=== PATIENT | male | born 1980 | race Caucasian/White ===

== ENCOUNTER → 2018-02-04 | Outpatient (CLI) | payer OTHER ==
[~2018-02-04] VITALS: Ht 172.7 cm; Wt 67.0 kg
[~2018-02-04] MED LIST: LIPITOR 20 MG T20 M1 PO; NEURONTIN 300300 M1 PO; NORCO 5-325 TA1 EACH PO; OMEPRAZOLE20 M2 PO
[2018-02-04 09:07] VITALS: BP 107/74
--- NOTE | 2018-02-04 09:17 | NUR ---
Pain Clinic Assessment: 1. History of Osteoarthritis: Not Applicable History of Rheumatoid Arthritis: Not Applicable 2. Height: 5 ft. 8 in. 172.7 cm. Weight: 147.6 lb. oz. 66.951 kg. Patient's BMI: 22.4 3. Vital Signs: BP: 107/74 Pulse: 60 Resp: 14 Temp: 02 Sat: 97 ECG Mon: 4. Pain Intensity: 4 5. Fall Risk: Dizziness: N Needs help standing or walking: N Fallen in the last 3 months: N Fall risk comments: 6. Patient on Blood Thinner: None 7. History of Hypertension: N 8. Opioid Therapy greater than 6 weeks: N Opiate Contract Signed: 9. Risk Assessment Tool Provided: 10. Functional Assessment Tool: 11. Recreational Drug Use: Never Drug Type: Tobacco Use: Never Smoker Tobacco Type: Amount or Packs/day: How Many Years: Alcohol Use: Yes Frequency: Weekly Quant: 2-3
--- NOTE | 2018-02-10 11:18 | HPC ---
[facility] [place] [address] PAIN MANAGEMENT CONSULTATION Name: ENRIQUE PAULINO I Room #: REG MILDRED Stewart.#: [id number] Admission: 02/04/18 ������������������ Attend Phys: Max Humphries MD Discharge: ������������������ Date of : 78 Report #: [id number] THIS REPORT FOR: //name// CC: Shakir Gray DATE OF SERVICE: 02/04/2018 CHIEF COMPLAINT: Neck pain radiating into the left upper arm. The patient is a 37-year-old otherwise healthy gentleman who is here today with 6-week history of cervical radiculopathy. Beginning on December 21 while on work trip, he was running on a treadmill. It had been sometimes as he had been running and he had an aggressive exercise session. About 12 hours later, he had the onset of pain in his neck, muscle spasm and pain radiating to the left into the upper arm. He was out of town, was miserable for a couple of days and saw a chiropractor just prior to departure on the airplane which helped the stiffness, but the pain in his arm continued at a very high level 11/18. He saw his primary care back in [place] where he lives with his family and was given gabapentin and hydrocodone which have helped obtain the symptoms somewhat, but the pain has remained at a high level through the first 4 weeks. It was so severe at one point that it radiated down through his back into his chest wall and he was seen in the Emergency Room where an extensive review for other injuries including possibility of pulmonary embolus was completed without any other injuries identified. His father, Shakir Paulino arranged for him to be seen in [place]. Navigating insurance wetzel was not easy out of network, but he was able to see Enrique Worthy MD at his private clinic and received a cervical epidural injection roughly 2 weeks ago. The injection was helpful. It reduced his 10/10 pain over the next 4-6 days to a level of about 4/10. It is there where his pain continues. At one point, the pain was so severe he had lot of difficulty sleeping, requiring hydrocodone. The pain is now a bit better, but continues to bother him at night. There is no question though the trend is positive, he is getting better. He saw Agatha Adrian at Dr. Desir's office who ordered the MRI and we reviewed the MRI findings together today. He has a broad-based left paracentral disk osteophyte complex, which causes effacement of the ventral thecal sac and left neural foraminal stenosis. The facet joints were unremarkable. The thecal sac; however narrowed to 0.9 mm. Similar findings at C6-C7 with mild narrowing of the neural foramina. On my own personal review, it is clear that the more [facility] [address] [place] [address] PAIN MANAGEMENT CONSULTATION Name: ENRIQUE PAULINO Gretta [facility] #[facility] [id number] Admission: 02/04/18 ������������������ Attend Phys: Max Humphries MD Discharge: ������������������ Date of : 78 Report #: [id number] significant disk appears to be at C5-C6 which would correlate well with C6 cervical radiculopathy as he is presenting with today. Most of his pain is in his upper arm. He has mild occasional intermittent numbness that radiates down into the hand, but this is not present significantly, although there was some initial weakness in deltoid that is improved as well over the last couple of weeks. MEDICATIONS: Gabapentin 300 mg b.i.d. and hydrocodone 5/325 up to 4 times daily, Lipitor 20 mg daily, omeprazole 20 mg daily. ALLERGIES: None. 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 He still has a bit of a hoarse voice as a result of that. He has some followup for that with local physicians. He had injury to his left thumb in 2007. Otherwise, good health. SOCIAL HISTORY: He works in public safety dispatcher. He is with 2 children, both boys age 4 and 2. Denies use of tobacco, drinks alcohol occasionally during the week on a social basis. Impact pain score is 17/70. He is doing well with his pain, although it is obvious that it is interfering with activities of daily living. REVIEW OF SYSTEMS: Completed by the patient is essentially negative. PHYSICAL EXAMINATION: GENERAL: He is a pleasant, well spoken 37-year-old. HEENT: Normal. MUSCULOSKELETAL: Examination of the neck reveals reasonable range of motion, but increases pain in his left arm with neck flexion. Neck extension is partially restricted. Rotation, [id number] tilt and neck extension are performed without too much exacerbation of pain. Tenderness in the occiput and along the neck, particularly on the left is noted. Muscle spasm is minimal at this time. Deltoid function is symmetrical bilateral as well as triceps and biceps. Deep tendon reflexes are diminished throughout, but there appears to be complete loss of the brachioradialis reflex on the left. Sensation is intact. No focal weakness is noted. No asymmetry. Deep tendon reflexes in the lower extremities to check for compression are normal, 1-2+ bilaterally at knees and ankles. MRI findings as noted above. [facility] [address] [place] [address] PAIN MANAGEMENT CONSULTATION Name: ENRIQUE PAULINO I Room #: ISIDRO Mcmanus#: [id number] Admission: 02/04/18 ������������������ Attend Phys: Max Humphries MD Discharge: ������������������ Date of : 78 Report #: [id number] IMPRESSION: C6 cervical radiculopathy. There may be some component of C7 radiculopathy as well. I spent 20 minutes with him reviewing his injury, his MRI and also plans for treatment. Cervical epidural injection recommended under fluoroscopic guidance. Injection performed at C6-C7. He was taken to fluoroscopic suite, placed prone, skin prepped with ChloraPrep. Skin anesthetized over the C6-C7 interspace at midline. A 20-gauge Tuohy epidural needle advanced just to the left midline. No blood or CSF was aspirated. A 0.25 mL of Isovue was injected and an epidurogram was achieved showing bilateral lateral recess spread, particularly to the left. Spread was cephalad and caudad. I injected a total of 4 mL of 0.5% lidocaine mixed with 80 mg of triamcinolone. He tolerated the procedure well and was taken to recovery room for short observation. Followup visit planned as needed. No medications were ordered at this time. ��������������������������������������������� <ELECTRONICALLY SIGNED> ���������������������������������������� By: Max Humphries MD ��������������������������������������������� 02/10/18 [id number] Max Humphries MD /nt
== END | disposition home or self-care (01) ==
LOC: PAIN 07:33
DX: M54.12 Radiculopathy, cervical region (principal); G89.29 Other chronic pain; Z79.891 Long term (current) use of opiate analgesic; Z79.899 Other long term (current) drug therapy; Z98.890 Other specified postprocedural states